=== PATIENT | female | born 1970 | race Caucasian/White ===

== ENCOUNTER 2025-06-20 14:21 | Emergency (ER) | payer MEDICARE ==
[~2025-06-20] VITALS: Ht 160 cm; Wt 59.0 kg
[2025-06-20 14:29] VITALS: O2SAT 99
[2025-06-20] MEDS: NITROGLYCERIN 0.4MG TABLET SL SL ONE (15:28)
[2025-06-20 15:54] LABS: BASOPHILS % 0.5 % (0.0-2.0); EOSINOPHILS % 1.3 % (0.0-5.0); HEMATOCRIT. 41.8 % (36.0-48.0); HEMOGLOBIN. 14.5 g/dL (12.0-16.0); LYMPHOCYTES % 18.8 % (20.0-50.0); MEAN PLATELET VOLUME 6.8 fl (7.4-10.4); MONOCYTES % 5.6 % (2.0-8.0); NEUTROPHILS % 73.8 % (40.0-76.0); PLATELET 319 x1000/uL (130-400); RED BLOOD CELL COUNT 4.50 mill/uL (4.2-5.4); RED CELL DISTRIBUTION WIDTH 13.5 % (11.6-14.6)
[2025-06-20 16:04] LABS: INR 1.0
[2025-06-20 16:07] LABS: CREATININE 0.6 mg/dL (0.6-1.0); TROPONIN I HIGH SENSITIVITY < 4 ng/L (3.0-34); UREA NITROGEN BLOOD 10 mg/dL (9-23)
[2025-06-20 16:09] LABS: ASPARTATE AMINOTRANSFERASE 53 IU/L (<34); BILIRUBIN DIRECT 0.2 mg/dL (<=3.0); BILIRUBIN TOTAL 0.6 mg/dL (0.1-1.0); PROTEIN TOTAL 7.1 g/dL (6.0-8.3)
[2025-06-20 18:55] VITALS: BP 155/95; PULSE 85; RESP 17; TEMP 37; O2SAT 98
== END 2025-06-20 19:12 | disposition left against medical advice (07) ==
LOC: ER 14:56 → CANBEDREQ 19:10 → ER 19:12
DX: I20.89 Other forms of angina pectoris (principal); F17.290 Nicotine dependence, other tobacco product, uncomplicated
CPT/HCPCS: 36415; 71045; 80048; 80076; 84484; 85025; 93005; 99291; 99406